=== PATIENT | male | born 1945 | race Two or more races ===

== ENCOUNTER 2022-03-20 05:45 | Day surgery (SDC) | payer OTHER | END 2022-03-20 12:20 | disposition home or self-care (01) | LOC: AMB-ENDOS 05:45 → CIR.AMB 13:30 | PROVIDERS: ATTEND Surgery | DX: K29.70 Gastritis, unspecified, without bleeding (principal); K29.80 Duodenitis without bleeding; K44.9 Diaphragmatic hernia without obstruction or gangrene; K59.00 Constipation, unspecified; K64.8 Other hemorrhoids; D50.9 Iron deficiency anemia, unspecified; E10.9 Type 1 diabetes mellitus without complications; I10 Essential (primary) hypertension; Z20.822 Contact with and (suspected) exposure to COVID-19 ==